=== PATIENT | male | born 1960 | race Caucasian/White ===

== ENCOUNTER → 2023-01-12 | Day surgery (SDC) | payer BC ==
[~2023-01-12] MED LIST: Lactated Ringers 1,000 ML IV SCH
== END ==
LOC: CC.SDS 10:50
PROVIDERS: ATTEND Family Medicine
DX: Z12.11 Encounter for screening for malignant neoplasm of colon (principal); K64.8 Other hemorrhoids; N40.1 Benign prostatic hyperplasia with lower urinary tract symptoms; R35.1 Nocturia; E78.00 Pure hypercholesterolemia, unspecified; M25.539 Pain in unspecified wrist; G89.29 Other chronic pain; Z79.82 Long term (current) use of aspirin; Z98.890 Other specified postprocedural states
CPT/HCPCS: 00812; J7120